=== PATIENT | female | born 1945 | race Hispanic/Latino ===

== ENCOUNTER → 2017-08-11 | Outpatient (CLI) | payer OTHER ==
[~2017-08-11] MED LIST: CALC600T12 PO; FELO5TAB31 PO; LANS15TA5 PO; LEVO75TA10 PO; ROSU10TA PO
== END ==
LOC: RAH 12:42
PROVIDERS: ATTEND Physical Medicine & Rehabilitation
DX: M81.0 Age-related osteoporosis without current pathological fracture (principal); M24.531 Contracture, right wrist
CPT/HCPCS: 73130

== ENCOUNTER → 2017-10-19 | Outpatient (CLI) | payer OTHER | END | disposition home or self-care (01) | LOC: RAH 10:55 | PROVIDERS: ATTEND Family Medicine | DX: Z12.31 Encounter for screening mammogram for malignant neoplasm of breast (principal) | CPT/HCPCS: 77067 ==

== ENCOUNTER → 2018-10-25 | Outpatient (CLI) | payer OTHER ==
[~2018-10-25] MED LIST changes: -ROSU10TA PO; +ROSU10TA22 PO
== END | disposition home or self-care (01) ==
LOC: RAH 10:00
PROVIDERS: ATTEND Family Medicine
DX: Z12.31 Encounter for screening mammogram for malignant neoplasm of breast (principal)
CPT/HCPCS: 77067

== ENCOUNTER → 2018-11-01 | Outpatient (CLI) | payer OTHER | END | disposition home or self-care (01) | LOC: RAH 13:09 | PROVIDERS: ATTEND Family Medicine | DX: N60.02 Solitary cyst of left breast (principal) | CPT/HCPCS: 76641 ==

== ENCOUNTER → 2019-10-26 | Outpatient (CLI) | payer OTHER ==
[~2019-10-26] MED LIST changes: -CALC600T12 PO; +CALC600T15 PO; -FELO5TAB31 PO; +FELO5TAB48 PO
== END | disposition home or self-care (01) ==
LOC: RAH 13:49
PROVIDERS: ATTEND Family Medicine
DX: Z12.31 Encounter for screening mammogram for malignant neoplasm of breast (principal); N63.21 Unspecified lump in the left breast, upper outer quadrant
CPT/HCPCS: 77067

== ENCOUNTER → 2019-11-08 | Outpatient (CLI) | payer OTHER | END | disposition home or self-care (01) | LOC: RAH 07:28 | PROVIDERS: ATTEND Family Medicine | DX: N63.42 Unspecified lump in left breast, subareolar (principal); N60.02 Solitary cyst of left breast | CPT/HCPCS: 76641; 77065 ==

== ENCOUNTER → 2020-10-29 | Outpatient (CLI) | payer OTHER ==
[~2020-10-29] MED LIST changes: +CALC-1125 PO; -CALC600T15 PO
== END | disposition home or self-care (01) ==
LOC: RAH 12:50
PROVIDERS: ATTEND Family Medicine
DX: Z12.31 Encounter for screening mammogram for malignant neoplasm of breast (principal); Z00.01 Encounter for general adult medical examination with abnormal findings
CPT/HCPCS: 77067

== ENCOUNTER → 2020-11-05 | Outpatient (CLI) | payer OTHER | END | disposition home or self-care (01) | LOC: RAH 10-22 09:14 | PROVIDERS: ATTEND Internal Medicine Cardiovascular Disease | DX: I35.8 Other nonrheumatic aortic valve disorders (principal); R55 Syncope and collapse | CPT/HCPCS: 93306; 93356 ==

== ENCOUNTER → 2022-05-01 | Outpatient (CLI) | payer OTHER | END | disposition home or self-care (01) | LOC: RAH 06:56 | PROVIDERS: ATTEND Internal Medicine | DX: R10.12 Left upper quadrant pain (principal) | CPT/HCPCS: 78264; A9541 ==

== ENCOUNTER → 2022-11-04 | Outpatient (CLI) | payer OTHER | END | disposition home or self-care (01) | LOC: OIH 09:02 | PROVIDERS: ATTEND Family Medicine | DX: Z13.6 Encounter for screening for cardiovascular disorders (principal) | CPT/HCPCS: 75571 ==

== ENCOUNTER → 2022-11-12 | Outpatient (CLI) | payer OTHER | END | disposition home or self-care (01) | LOC: RAH 14:35 | PROVIDERS: ATTEND Family Medicine | DX: Z12.31 Encounter for screening mammogram for malignant neoplasm of breast (principal) | CPT/HCPCS: 77067 ==

== ENCOUNTER → 2023-01-08 | Outpatient (CLI) | payer OTHER | END | disposition home or self-care (01) | LOC: RAH 10:47 | PROVIDERS: ATTEND Family Medicine | DX: R93.89 Abnormal findings on diagnostic imaging of other specified body structures (principal); N93.9 Abnormal uterine and vaginal bleeding, unspecified | CPT/HCPCS: 76856 ==

== ENCOUNTER → 2023-01-21 | Outpatient (CLI) | payer OTHER | END | disposition home or self-care (01) | LOC: RAH 13:29 | PROVIDERS: ATTEND Family Medicine | DX: R22.1 Localized swelling, mass and lump, neck (principal); M47.812 Spondylosis without myelopathy or radiculopathy, cervical region | CPT/HCPCS: 70490 ==

== ENCOUNTER → 2023-05-25 | Outpatient (CLI) | payer OTHER | END | disposition home or self-care (01) | LOC: RAH 12:58 | PROVIDERS: ATTEND Obstetrics & Gynecology | DX: N95.0 Postmenopausal bleeding (principal); D25.9 Leiomyoma of uterus, unspecified | CPT/HCPCS: 76856 ==

== ENCOUNTER → 2023-11-25 | Outpatient (CLI) | payer OTHER | END | disposition home or self-care (01) | LOC: RAH 13:25 | PROVIDERS: ATTEND Family Medicine | DX: Z12.31 Encounter for screening mammogram for malignant neoplasm of breast (principal); R92.323 Mammographic fibroglandular density, bilateral breasts | CPT/HCPCS: 77067 ==

== ENCOUNTER → 2024-01-07 | Outpatient (CLI) | payer OTHER | END | disposition home or self-care (01) | LOC: SHCH 08:22 | PROVIDERS: ATTEND Internal Medicine Cardiovascular Disease | DX: R01.1 Cardiac murmur, unspecified (principal) | CPT/HCPCS: 93306 ==

== ENCOUNTER 2024-10-19 17:07 | Emergency (ER) | payer OTHER ==
[~2024-10-19] VITALS: Ht 160 cm; Wt 83.9 kg
--- NOTE | 2024-10-19 18:15 | ERN ---
ED Note History of Present Illness Stated Complaint: PHYSICIAN REFERRAL TO CONTROL BP Chief Complaint: Hypertension Time Seen by MD: 17:24 Time Seen by Midlevel: 17:30 Dictation: Ms. Alexandre is a 78 year old female with history of anxiety, hypertension, hypothyroidism, and obesity who presented to the Emergency Department this evening for evaluation of hypertension. She has been experiencing 5 days of intermittent chest pain, elevated blood pressure readings, and pain to the back of her head. She is currently taking only Losartan for BP and states she gets very anxious. and worries about it. She went to Dr. Burns's office today where it was reported that her SBP was elevated to 198, 210, and 212. She was given a dose of Clonidine 0.1mg oral x 1 and referred to ED for further evaluation. She states she is pending a CT scan of the chest. She fever, chills, shortness of breath, cough, palpitations, edema, abdominal pain, nausea, vomiting, hematemesis, constipation, diarrhea, melena, hematochezia, dysuria, dizziness, or focal weakness/paresthesia Allergies: Coded Allergies: Penicillins (Unverified Allergy, Unknown, 01/05/17) aspirin (Unverified Allergy, Unknown, 01/05/17) codeine (Unverified Allergy, Unknown, 01/05/17) iodine (Unverified Allergy, Unknown, 01/05/17) Home Meds Active Scripts Clonidine HCl (Clonidine HCl) 0.1 Mg Tablet, 0.1 MG PO q 6 hr PRN SBP > 170, #10 TAB 0 Refills Prov:JAMES KELLER NP 10/19/24 Nitrofurantoin Macrocrystal (Nitrofurantoin) 100 Mg Capsule, 1 CAP PO BID for 10 Days, #20 CAP 0 Refills Prov:JAMES KELLER NP 10/19/24 Reported Medications Felodipine (Felodipine ER) 5 Mg Tab.er.24h, 5 MG PO HS, TAB 01/07/17 Calcium Carbonate (Calcium) 600 Mg Tablet, 600 MG PO HS, TAB 01/07/17 Lansoprazole (Prevacid) 15 Mg Tab.rap.dr, 15 MG PO ASNEEDED 01/07/17 Rosuvastatin Calcium (Crestor) 10 Mg Tablet, 10 MG PO HS, TAB 01/07/17 Levothyroxine Sodium (Levothyroxine Sodium) 75 Mcg Tablet, 75 MCG PO HS, TAB 01/07/17 Past Medical History Past Medical History: Anxiety, Hypertension, Hypothyroid, Other (Obesity) Surgical History: Other PSYCH History: anxiety Family History: CAD, HTN Social History: Negative History: Not Applicable RN Note Reviewed/Agreed w/PFSH: Yes Review of System Dictation REVIEW OF SYSTEMS: CONSTITUTIONAL: Patient denies fevers, chills, sweats and weight changes. EYES: Patient denies any visual symptoms. EARS, NOSE, AND THROAT: No difficulties with hearing. No symptoms of rhinitis or sore throat. CARDIOVASCULAR: Patient denies palpitations, orthopnea and paroxysmal nocturnal dyspnea. Reports intermittent chest pain for the past 5 days. She also states she worries so much about her blood pressure which has been elevated. Today at coffee weigher's office SBP readings 198, 210, and 212. She received dose Clonidine 0.1mg x 1 in office. RESPIRATORY: No dyspnea on exertion, no wheezing or cough. GI: No nausea, vomiting, diarrhea, constipation, abdominal pain, hematochezia or melena. : No urinary hesitancy or dribbling. No nocturia or urinary frequency. No abnormal urethral discharge. MUSCULOSKELETAL: No myalgias or arthralgias. NEUROLOGIC: No chronic headaches, no seizures. Patient denies numbness, tingling or weakness. No dysphagia. No dysarthria. No focal weakness/paresthesia. Re ports posterior headache. PSYCHIATRIC: Patient denies problems with mood disturbance. Reports feeling anxi ous. ENDOCRINE: No excessive urination or excessive thirst. DERMATOLOGIC: Patient denies any rashes or skin changes. Initial Vital Sign VS Vital Signs Date Time Temp Pulse Resp B/P (MAP) Pulse Ox O2 Delivery O2 Flow Rate FiO2 10/19/24 17:57 98.2 66 20 186/72 Room Air 10/19/24 21:29 97 0 21 Physical Exam Dictation Vital signs: Reviewed. Afebrile. Constitutional: No acute distress. Non-toxic appearing. Head/Face: Normocephalic, atraumatic. Eyes: Periorbital areas with no swelling, redness, or edema. Lids and lashes are normal. Conjunctival injection is absent. Sclera anicteric. Pupils equal, round, reactive to light. ENT: Pinnas intact and no signs of trauma or erythema. Ear canals clear and no discharge. TMs no erythema. No nasal discharge or bleeding noted. Oropharynx with no exudate, redness, swelling, masses, exudates, or evidence of obstruction. Uvula midline. Mucous membranes moist. Neck: Trachea midline, no masses palpated, and no cervical lymphadenopathy. No swelling. Supple, full range of motion. Chest/Axilla: No tenderness, no crepitus, no paradoxical movement, no retractions. Cardiovascular: Regular rate, regular rhythm, no murmur, no gallops. Symmetric pulses. No peripheral edema. Hypertensive blood pressure; 186/72. Respiratory: Respirations even and unlabored. Lung sounds clear; no wheezes, rales or rhonchi. Room air spo2 98%. Gastrointestinal: Obese. No distention is appreciated. Bowel sounds are normal. No mass or organomegaly . There is no tenderness. No rebound. No rigidity. No voluntary or involuntary guarding. No Gongora's sign. Neurological: Normal speech, gross motor function intact, gross sensory function intact. No focal weakness/Paresthesia. NIHSS=0. Musculoskeletal/Extremities: All extremities have full range of motion, no pain or tenderness on palpation. Symmetric pulses. Integumentary: Intact. Skin is normal color, warm and dry. Cap refill less than 3 seconds. Results (Laboratory/Radiology) Laboratory/Radiology Laboratory Tests Test 10/19/24 19:07 10/19/24 19:51 White Blood Count 10.2 K/uL (4.8-10.8) Red Blood Count 5.44 MIL/uL (4.00-5.50) Hemoglobin 14.7 g/dL (12.0-16.0) Hematocrit 45.9 % (36-48) Mean Corpuscular Volume 84.4 fL (79-99) Mean Corpuscular Hemoglobin 27.0 pg (27.0-33.0) Mean Corpuscular Hemoglobin Concent 32.0 g/dL (32.0-36.0) Red Cell Distribution Width 13.3 % (11.0-15.5) Platelet Count 195 K/uL (130-400) Mean Platelet Volume 12.7 fL (7.5-10.5) H Immature Granulocyte % (Auto) 0.4 % (0-1) Neutrophils (%) (Auto) 63.0 % (40.0-77.0) Lymphocytes (%) (Auto) 29.9 % (21.0-51.0) Monocytes (%) (Auto) 4.8 % (3.0-13.0) Eosinophils (%) (Auto) 1.4 % (0.0-8.0) Basophils (%) (Auto) 0.5 % (0.0-5.0) Neutrophils # (Auto) 6.4 K/uL (1.8-7.7) Lymphocytes # (Auto) 3.0 K/uL (1.0-4.8) Monocytes # (Auto) 0.5 K/uL (0.1-1.0) Eosinophils # (Auto) 0.14 K/uL (0.00-0.70) Basophils # (Auto) 0.05 K/uL (0.00-0.20) Absolute Immature Granulocyte (auto 0.04 K/uL (0-1) Nucleated Red Blood Cells 0.0 % (0.0-0.19) Sodium Level 143 mmol/L (136-145) Potassium Level 4.0 mmol/L (3.5-5.1) Chloride Level 106 mmol/L (101-111) Carbon Dioxide Level 30 mmol/L (21-32) Blood Urea Nitrogen 17 mg/dL (7-18) Creatinine 0.8 mg/dL (0.5-1.0) Glomerular Filtration Rate Calc 76 mL/min (>90) Random Glucose 119 mg/dL (70-105) H Total Calcium 9.1 mg/dL (8.5-10.1) Troponin I High Sensitivity 13 ng/L (4-50) B-Type Natriuretic Peptide 70 pg/mL (0-100) Urine Color YELLOW (YELLOW) Urine Appearance CLEAR (CLEAR) Urine pH 6.0 (5.0-8.0) Urine Specific Fisher 1.025 (1.001-1.031) Urine Protein NEGATIVE mg/dL (NEGATIVE) Urine Glucose (UA) NEGATIVE mg/dL (NEGATIVE) Urine Ketones NEGATIVE mg/dL (NEGATIVE) Urine Occult Blood MODERATE (NEGATIVE) H Urine Nitrate POSITIVE (NEGATIVE) H Urine Bilirubin NEGATIVE mg/dL (NEGATIVE) Urine Urobilinogen 0.2 mg/dL (0.2-1.0) Urine Leukocyte Esterase SMALL Gary/uL (NEGATIVE) H Urine RBC 2-5 /HPF (0-1) H Urine WBC 11-25 /HPF (0-1) H Urine Squamous Epithelial Cells FEW /HPF (0-2) Urine Bacteria RARE /HPF (None Seen) Labs Reviewed?: Yes EKG Comment: EKG Interpretation: Time Reviewed: 53 Normal sinus rhythm Ventricular rate: 53 bpm RI Interval: 157 ms QRS duration: [address] segment elevation or depression. Clinical impression: Sinus bradycardia EKG Reviewed and interpreted by Dr. Merced Estrella X-RAY Comment: PATIENT: JESSI ALEXANDRE MR#: [id number] : 1945 SEX: F AGE: 78 LOCATION: [facility] ORDER 07 STATUS: [facility] ER REPORT#: [id number] SERVICE 05 REASON: chest pain ORDERING PHYSICIAN: JAMES KELLER NP PROCEDURE: CXR1VW - CHEST 1VW CHEST 1VW HISTORY: Chest pain COMPARISON: 01/05/2017 FINDINGS: A frontal projection of the chest was obtained. No acute pulmonary infiltrates is seen. The heart is borderline enlarged. Prominent interstitial markings are seen. Degenerative changes are seen. No evidence of aortic calcification is seen. IMPRESSION: 1. No acute pulmonary infiltrate is seen. DICTATED BY: JANICE LEIVA MD DATE: 10/19/242006 ELECTRONICALLY SIGNED BY: JANICE LEIVA MD DATE: 10/19/242008 CT Scan Comment: PATIENT: JESSI ALEXANDRE MR#: [id number] : 1945 SEX: F AGE: 78 LOCATION: [facility] ORDER 13 STATUS: REG ER REPORT#: [id number] SERVICE 12 REASON: chest pain, anxiety ORDERING PHYSICIAN: JAMES KELLER NP PROCEDURE: CHES PE - CT CHEST PE PROTOCOL WWO CONT CT CHEST PE PROTOCOL WWO CONT HISTORY: Chest pain COMPARISON: None TECHNIQUE: CT angiography of the chest was performed. The study was performed using angiographic technique with maximum intensity projection reconstruction images. Patient was given 75 cc of Omnipaque through intravenous route. FINDINGS: No CT evidence of filling defect is seen to suggest pulmonary embolus. No CT evidence of aortic dissection is seen. No evidence of parenchymal disease is seen. No CT evidence of pleural effusion or pericardial effusion is seen. The heart is enlarged. No evidence of adrenal mass is seen. Degenerative changes of the spine are noted. IMPRESSION: 1. No CT evidence of acute pulmonary embolus is seen. CT was performed with one or more following dose reduction techniques: automated exposure control, adjustment of the mA and kv according to patient's size, or use of a iterative reconstruction technique. DICTATED BY: JANICE LEIVA MD DATE: 10/19/242218 ELECTRONICALLY SIGNED BY: JANICE LEIVA MD DATE: 10/19/242221 ED Course ED Course Orders Procedure Category Date Status Time 12 Lead Ekg Tracing- EKG 10/19/24 Logged Technical 18:06 Cbc With Differential LAB 10/19/24 Complete 18:06 Basic Metabolic Panel LAB 10/19/24 Complete 18:06 B-Type Natriuretic LAB 10/19/24 Complete Peptide 18:06 Troponin I High LAB 10/19/24 Complete Sensitivity 18:06 Chest 1vw RAD 10/19/24 Resulted 18:06 Acetaminophen 325 Tab PHA 10/19/24 Complete (Tylenol 325mg Tab 18:30 Clonidine Hcl 0.1 Mg PHA 10/19/24 Complete Tablet (Catapres 0. 18:30 Urinalysis Profile LAB 10/19/24 Complete 18:15 *Nursing CPOE 10/19/24 Transmitted Communication: 19:51 Troponin I High LAB 10/19/24 Logged Sensitivity 20:11 Ct Chest Pe Protocol CT 10/19/24 Resulted Wwo Cont 20:13 Culture Urine NAYELI 10/19/24 In Process 20:41 Iohexol (Omnipaque) PHA 10/19/24 Complete 20:56 Nitrofurantoin PHA 10/19/24 Complete Monohyd/M-Cryst 21:30 Current Medications Medications (Trade) Dose Ordered Sig/[place] Route PRN Reason Start Time Stop Time Status Last Admin Dose Admin Acetaminophen (TYLenol 325MG TAB) 650 mg ONCE ONCE PO 10/19/24 18:30 10/19/24 18:31 DC 10/19/24 21:33 Clonidine HCl (CATApres 0.1 mg TAB) 0.1 mg ONCE ONCE PO 10/19/24 18:30 10/19/24 18:31 DC Iohexol (Omnipaque) 75 ml STK-MED ONCE IV 10/19/24 20:56 10/19/24 20:56 DC Nitrofurantoin Macrocrystals (Macrobid) 100 mg ONCE ONCE PO 10/19/24 21:30 10/19/24 21:31 DC Vital Signs Date Time Temp Pulse Resp B/P (MAP) Pulse Ox O2 Delivery O2 Flow Rate FiO2 10/19/24 21:29 54 20 150/65 97 Room Air* 0 21 10/19/24 17:57 98.2 66 20 186/72 Room Air Uneventful ED course. Patient has been calm and denies having any chest pain. Twelve lead EKG reflects a sinus rhythm without ST elevation or depression. Vital signs are stable; afebrile with room air SpO2 97%. Initial blood pressure elevated to 186/72; trending down after Clonidine dose administered at Cardiologists office. . Laboratory findings as noted below. No elevation of WBCs. H&H are stable. No elevation of BNP and troponin is negative. Glucose 119. UA cloudy; + blood, leukocyte esterase, nitrate, and you WBCs 11-25. UCX pending. While in the ED she received doses Tylenol, Tylenol, and nitrof urantoin. She did not receive aspirin due to medication allergy. Chest x-ray noted cardiomegaly. CT a negative for PE. She states she is feeling well and is ready for discharge to home with daughter. Medical Decision Making MDM MDM: Differential diagnosis: Accelerated hypertension, ACS, PE, anxiety, UTI Rationale: Tests considered and ordered secondary to shared decision making include: Lab, EKG, chest x-ray, UA Previous outside records reviewed: Old ER visits. Risk of complication and/or morbidity or mortality of patient management: None Medications-Per medication reconciliation Need for hospitalization: Patient does not meet criteria for hospitalization. Need for emergency major/minor surgery: No There are no social concerns with this patient. Prescription drug management: Nitrofurantoin, clonidine Prescriptions will include symptomatic care Patient's prior external medical records from other ER visits were reviewed by me as indicated. Prior testing and results from previous visits were reviewed. Prior tests were taken into account with medical decision making and resource utilization, independent historian/historians were used to obtain complete medical history. I independently interpreted the test that were performed, results were reviewed by me and considered findings on radiology if ordered. Medical management and examination interpretation discussions were had by me with other qualified healthcare professionals as indicated for the patient's care. DX & DISP Disposition: Discharge Departure Impression: Primary Impression: UTI (urinary tract infection) Additional Impressions: Accelerated essential hypertension, Anxiety Condition: Stable Scripts Clonidine HCl (Clonidine HCl) 0.1 Mg Tablet 0.1 MG PO q 6 hr PRN SBP > 170, #10 TAB 0 Refills Prov: JAMES KELLER NP 10/19/24 Nitrofurantoin Macrocrystal (Nitrofurantoin) 100 Mg Capsule 1 CAP PO BID for 10 Days, #20 CAP 0 Refills Prov: AJMES KELLER SENIOR RECRUITER 10/19/24 Additional Instructions: Rest. Drink plenty of water. Continue antibiotic nitrofurantoin twice daily for 10 days. Keep log of your blood pressure readings for follow up with coffee weigher/PCP. May take clonidine 0.1 mg every 6 hours as needed for systolic blood pressure greater than 170. Return to the emergency department for any worsening of symptoms or concerns. Referrals: CHANEL CANCHOLA DO (PCP) Time of Disposition: 21:34 JAMES KELLER NP Oct 19, 2024 18:15
[2024-10-19] MEDS ORDERED: cloNIDine HCL 0.1 MG TABLET PO ONE (18:30)
[2024-10-19 19:17] LABS: BASOPHILS # (AUTO) 0.05 K/uL (0.00-0.20); BASOPHILS % (AUTO) 0.5 % (0.0-5.0); EOSINOPHILS # (AUTO) 0.14 K/uL (0.00-0.70); EOSINOPHILS % (AUTO) 1.4 % (0.0-8.0); HEMATOCRIT 45.9 % (36-48); IMMATURE GRANULOCYTE ABSOLUTE 0.04 K/uL (0-1); LYMPHOCYTES % (AUTO) 29.9 % (21.0-51.0); MEAN CORPUSCULAR VOLUME 84.4 fL (79-99); MONOCYTES # (AUTO) 0.5 K/uL (0.1-1.0); MONOCYTES % (AUTO) 4.8 % (3.0-13.0); NEUTROPHILS # (AUTO) 6.4 K/uL (1.8-7.7); PLATELET COUNT (AUTO) 195 K/uL (130-400); RED BLOOD CELL COUNT(AUTO) 5.44 MIL/uL (4.00-5.50); RED CELL DISTRIBUTION WIDTH 13.3 % (11.0-15.5); WHITE BLOOD COUNT (AUTO) 10.2 K/uL (4.8-10.8)
[2024-10-19 19:24] LABS: CREATININE 0.8 mg/dL (0.5-1.0)
[2024-10-19 19:35] LABS: B-TYPE NATRIURETIC PEPTIDE 70 pg/mL (0-100)
--- NOTE | 2024-10-19 20:09 | HMCIMG ---
CHEST 1VW HISTORY: Chest pain COMPARISON: 01/05/2017 FINDINGS: A frontal projection of the chest was obtained. No acute pulmonary infiltrates is seen. The heart is borderline enlarged. Prominent interstitial markings are seen. Degenerative changes are seen. No evidence of aortic calcification is seen. IMPRESSION: 1. No acute pulmonary infiltrate is seen.
[2024-10-19 20:36] LABS: APPEARANCE,URINE CLEAR (CLEAR); BILIRUBIN,URINE NEGATIVE (NEGATIVE); COLOR,URINE YELLOW (YELLOW); GLUCOSE, URINE (UA) NEGATIVE (NEGATIVE); KETONES,URINE NEGATIVE (NEGATIVE); LEUKOCYTE ESTERASE ,URINE SMALL Leu/uL (NEGATIVE); NITRATE,URINE POSITIVE (NEGATIVE); OCCULT BLOOD,URINE MODERATE (NEGATIVE); PROTEIN,URINE NEGATIVE (NEGATIVE); UROBILINOGEN,URINE 0.2 mg/dL (0.2-1.0)
[2024-10-19 20:41] LABS: ADD UA MICROSCOPIC YES
[2024-10-19 20:44] LABS: BACTERIA,URINE RARE /HPF (None Seen); MUCUS,URINE RARE LPF (None Seen); SQUAMOUS EPITHELIAL CELL,UR FEW /HPF (0-2)
[2024-10-19] MEDS ORDERED: IOHEXOL-350 75 ML VIAL IV ONE (20:56)
[2024-10-19] MEDS ORDERED: CLON0.1T PO (21:33)
[2024-10-19] MEDS: acetaMINOPHEN 325 MG TAB PO ONE (21:33)
[2024-10-19] MEDS ORDERED: NITR100C PO (21:33)
--- NOTE | 2024-10-19 22:22 | HMCIMG ---
CT CHEST PE PROTOCOL WWO CONT HISTORY: Chest pain COMPARISON: None TECHNIQUE: CT angiography of the chest was performed. The study was performed using angiographic technique with maximum intensity projection reconstruction images. Patient was given 75 cc of Omnipaque through intravenous route. FINDINGS: No CT evidence of filling defect is seen to suggest pulmonary embolus. No CT evidence of aortic dissection is seen. No evidence of parenchymal disease is seen. No CT evidence of pleural effusion or pericardial effusion is seen. The heart is enlarged. No evidence of adrenal mass is seen. Degenerative changes of the spine are noted. IMPRESSION: 1. No CT evidence of acute pulmonary embolus is seen. CT was performed with one or more following dose reduction techniques: automated exposure control, adjustment of the mA and kv according to patient's size, or use of a iterative reconstruction technique.
[2024-10-19] MEDS: NITROFURANTOIN MONOHYD/M-CRYST 100 MG CAPSULE PO ONE (22:46)
[2024-10-19 22:58] VITALS: BP 152/64; PULSE 57; RESP 20; TEMP 98.1; O2SAT 98
--- NOTE | 2024-10-20 06:39 | EKG ---
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
== END 2024-10-19 23:00 | disposition home or self-care (01) ==
LOC: EDH 17:07
DX: N39.0 Urinary tract infection, site not specified (principal); I10 Essential (primary) hypertension; F41.9 Anxiety disorder, unspecified; E03.9 Hypothyroidism, unspecified; E66.9 Obesity, unspecified; Z79.890 Hormone replacement therapy; Z88.0 Allergy status to penicillin; Z88.5 Allergy status to narcotic agent; Z88.6 Allergy status to analgesic agent; Z88.8 Allergy status to other drugs, medicaments and biological substances; Z91.041 Radiographic dye allergy status
CPT/HCPCS: 99285; 71270; 71045; 84484; 80048; 83880; 85025; 87086 ×2; 87186; 81001; 36415; 93005; Q9967

== ENCOUNTER → 2025-03-01 | Outpatient (CLI) | payer OTHER ==
[~2025-03-01] MED LIST changes: +CLON0.1T PO; +NITR100C PO
--- NOTE | 2025-03-01 14:58 | HMCIMG ---
DIGITAL bilateral breast DIAGNOSTIC MAMMOGRAM Technique: The digital mammographic examination of both breasts in craniocaudal, mediolateral oblique views along with CAD was obtained. History: This is a 79 years year-old female 4, para3 Ab1 . Patient has no family history of breast cancer. Patient has no complaint Reference:Prior mammogram from 11/25/2023 is available.. Breast composition: Breast composition D: The breasts are extremely dense, which lowers the sensitivity of mammography. Finding: The digital mammographic examination of both breasts in craniocaudal and mediolateral oblique view along with CAD demonstrates to BE mildly dense with mostly involutional fatty changes.. There is no evidence of any dendritic mass, cluster microcalcification or architectural distortion. The retromammary fat appears to be normal. IMPRESSION: Unchanged from prior mammography. NO RADIOGRAPHIC EVIDENCE OF MALIGNANT CHANGES. WE WOULD RECOMMEND ANNUAL FOLLOW UP WITH TOMOSYNTHESIS UNLESS OTHERWISE CLINICALLY INDICATED. FINAL ASSESSMENT: ACR: BI-RAD- 2. Benign: Also a negative assessment; finding(s) benign abnormalities. Management: Routine mammography screening. Likelihood of Cancer: Essentially 0% likelihood of malignancy. NOTE: IF A WORK-UP OF THIS PATIENT LEADS TO A BIOPSY, PLEASE FORWARD A COPY OF THE PATHOLOGY REPORT TO OUR OFFICE REQUIRED BY [employer] E[employer]ECTIVE FEBRUARY 08, 1994. A NEGATIVE MAMMOGRAM SHOULD NOT PRECLUDE BIOPSY OF A CLINICALLY PALPABLE SUSPICIOUS MASS, 10% OF BREAST CANCERS ARE MAMMOGRAPHICALLY OCCULT. THIS MAMMOGRAPHY FACILITY IS FULLY ACCREDITED BY THE FOOD AND DRUG ADMINISTRATION (FDA). THANK YOU FOR THIS REFERRAL.
== END | disposition home or self-care (01) ==
LOC: RAH 11:11
PROVIDERS: ATTEND Family Medicine
DX: N61.0 Mastitis without abscess (principal); R92.343 Mammographic extreme density, bilateral breasts
CPT/HCPCS: 77066